=== PATIENT | male | born 1995 | race Caucasian/White ===

== ENCOUNTER 2019-08-06 22:07 | Emergency (ER) | payer BC, OTHER ==
--- OUTSIDE RECORDS SUMMARY | 2019-08-06 22:10 | XMS REPORT ---
:1995 [facility] Address [address] [place] [address] Care Team Providers Name Role Phone Unavailable Unavailable Unavailable Problems This patient has no known problems. Allergies, Adverse Reactions, Alerts This patient has no known allergies or adverse reactions. Medications This patient has no known medications.
--- OUTSIDE RECORDS SUMMARY | 2019-08-06 22:10 | XMS REPORT | Summary of Care ---
:1995 Author Organization [facility] Address [address] [place] [id number] Care Team Providers Name Role Phone Donna Alaniz Primary Care Provider Encounter Details Date Type Department Care Team Description 08/01/2019 Hospital Encounter [facility] [address] [facility] [address], [place] [address] [place], [place] [phone] Allergies Not on Filedocumented as of this encounter (statuses as of 08/02/2019) Medications Not on filedocumented as of this encounter (statuses as of 08/02/2019) Active Problems Not on filedocumented as of this encounter (statuses as of 08/02/2019) Social History Tobacco Use Types Packs/Day Years Used Date Never Assessed Sex Assigned at Date Recorded Not on file Job Start Date Occupation Industry Not on file Not on file Not on file Travel History Travel Start Travel End No recent travel history available. documented as of this encounter Last Filed Vital Signs Not on filedocumented in this encounter Plan of Treatment Health Maintenance Due Date Last Done Comments VARICELLA VACCINES (1 of 2 - 1994 2-dose childhood series) DTaP,Tdap,and Td Vaccines ( - 2004 Tdap) INFLUENZA VACCINE (#1) 2019 HPV VACCINES Aged Out No longer eligible based on patient's age to complete this topic PNEUMOCOCCAL 0-64 YEARS COMBINED Aged Out No longer eligible based on SERIES patient's age to complete this topic documented as of this encounter Procedures Procedure Name Priority Date/Time Associated Diagnosis Comments XR CHEST 2 VW Routine 08/01/2019 3:26 PM Shortness of breath Results for this [employer] procedure are in the results section. XR SINUSES 3+ VW Routine 08/01/2019 3:26 PM Chronic maxillary Results for this [employer] sinusitis procedure are in the results section. documented in this encounter Results XR SINUSES 3+ VW (08/01/2019 3:26 PM [employer]) Specimen Narrative Performed At HISTORY: Chronic maxillary sinusitis. PACS/VR/DOSE COMPARISON: None. TECHNIQUE: AP, right lateral and Weaver views are submitted for paranasal sinus evaluation. FINDINGS: All paranasal sinuses appear clear. No significant deviation of the nasal septum noted. No gross pathology visualized in the temporal bone anatomy or in the sella turcica region. CONCLUSIONS: Clear paranasal sinuses. Procedure Note [facility], Radiant Results Inft User - 08/01/2019 3:32 PM [employer] HISTORY: Chronic maxillary sinusitis. COMPARISON: None. TECHNIQUE: AP, right lateral and Weaver views are submitted for paranasal sinus evaluation. FINDINGS: All paranasal sinuses appear clear. No significant deviation of the nasal septum noted. No gross pathology visualized in the temporal bone anatomy or in the sella turcica region. CONCLUSIONS: Clear paranasal sinuses. Performing Organization Address City/State/Zipcode Phone Number PACS/VR/DOSE documented in this encounter Visit Diagnoses Diagnosis Chronic maxillary sinusitis documented in this encounter documented as of this encounter
--- OUTSIDE RECORDS SUMMARY | 2019-08-06 22:10 | XMS REPORT | Summary of Care ---
:1995 Author Organization [facility] Address [address] [place] [address] Care Team Providers Name Role Phone Donna Alaniz Primary Care Provider Encounter Details Date Type Department Care Team Description 08/01/2019 Hospital Encounter [facility] Diagnostic Donna Alaniz Canceled (ERROR) and Breast Imaging, [address] [place] [phone] Allergies Not on Filedocumented as of this [...] Due Date Last Done Comments VARICELLA VACCINES ( of - 1994 2-dose childhood series) DTaP,Tdap,and Td Vaccines ( - 2004 Tdap) INFLUENZA VACCINE (#1) 2019 HPV VACCINES Aged Out No longer eligible based on patient's age to complete this topic PNEUMOCOCCAL 0-64 YEARS COMBINED Aged Out No longer eligible based on SERIES patient's age to complete this topic documented as of this encounter Procedures Procedure Name Priority Date/Time Associated Diagnosis Comments XR SINUSES 3+ VW Routine 08/01/2019 3:26 PM Chronic maxillary Results for this REVIEW SCHEDULING COORDINATOR sinusitis procedure are in the results section. XR CHEST 2 VW Routine 08/01/2019 3:26 PM Shortness of breath Results for this REVIEW SCHEDULING COORDINATOR procedure are in the results section. documented in this encounter Results XR SINUSES 3+ VW (08/01/2019 3:26 PM REVIEW SCHEDULING COORDINATOR) Specimen Narrative Performed At HISTORY: Chronic maxillary [...] Results Inft User - 08/01/2019 3:32 PM REVIEW SCHEDULING COORDINATOR HISTORY: Chronic maxillary sinusitis. COMPARISON: None. TECHNIQUE: AP, right lateral and Weaver views are submitted for paranasal sinus evaluation. FINDINGS: All paranasal sinuses appear clear. No significant deviation of the nasal septum noted. No gross pathology visualized in the temporal bone anatomy or in the sella turcica region. CONCLUSIONS: Clear paranasal sinuses. Performing Organization Address City/State/Zipcode Phone Number PACS/VR/DOSE XR CHEST 2 VW (08/01/2019 3:26 PM REVIEW SCHEDULING COORDINATOR) Specimen Narrative Performed At HISTORY: SOB. PACS/VR/DOSE TECHNIQUE: PA and lateral views of the chest are obtained. No prior chest study available for comparison. Lateral view is compromised due to motion. FINDINGS: Minimal congestion suspected in the retrocardiac left lower lung. No acute pneumonia detected. No pneumothorax or pleural effusion. Cardiothoracic ratio of approximately 15/33.8 cm is consistent with normal cardiac size. CONCLUSIONS: Minimal congestion in the retrocardiac left lower lung, borderline findings for viral infection/bronchitis. No pneumonia. Procedure Note [facility], Radiant Results Inft User - 08/01/2019 3:31 PM REVIEW SCHEDULING COORDINATOR HISTORY: SOB. TECHNIQUE: PA and lateral views of the chest are obtained. No prior chest study available for comparison. Lateral view is compromised due to motion. FINDINGS: Minimal congestion suspected in the retrocardiac left lower lung. No acute pneumonia detected. No pneumothorax or pleural effusion. Cardiothoracic ratio of approximately 15/33.8 cm is consistent with normal cardiac size. CONCLUSIONS: Minimal congestion in the retrocardiac left lower lung, borderline findings for viral infection/bronchitis. No pneumonia. Performing Organization Address City/State/Zipcode Phone Number PACS/VR/DOSE documented in this encounter Visit Diagnoses Diagnosis Shortness of breath documented in this encounter documented as of this encounter
[2019-08-06] MEDS ORDERED: IPRATROPIUM BROM 0.5MG/2.5ML ONE (23:41)
[2019-08-06] MEDS ORDERED: ALBUTEROL 2.5 MG/3 ML NEB SOL ONE (23:42)
--- NOTE | 2019-08-07 01:07 | EDPHYS ---
Physician Documentation [facility] Name: Parish Ferrera Age: 24 yrs Sex: Male : 1995 Arrival Date: 08/06/2019 Time: 22:10 Bed 26 Private MD: ED Physician Garland Rahman HPI: 08/06 00:37 This 24 yrs old Male presents to ER via Ambulatory with complaints of tw4 Breathing Difficulty. 00:37 The patient has shortness of breath at rest. Onset: The symptoms/episode began/occurred tw4 2 month(s) ago. Duration: The symptoms are continuous, and are unchanged since they started. The patient's shortness of breath has no apparent modifying factors. Associated signs and symptoms: The patient has no apparent associated signs or symptoms. Severity of symptoms: At their worst the symptoms were moderate in the emergency department the symptoms have resolved. The patient has not experienced similar symptoms in the past. Historical: - Allergies: 08/05 22:46 No Known Allergies; bb - Home Meds: 22:46 None [Active]; bb - PMHx: 22:46 None; bb - PSHx: 22:46 None; bb - Immunization history:: Adult Immunizations up to date. - Social history:: Smoking status: Patient denies any tobacco usage or history of. ROS: 08/06 00:37 Constitutional: Negative for fever, chills, and weight loss, Cardiovascular: Negative tw4 for chest pain, palpitations, and edema, Abdomen/GI: Negative for abdominal pain, nausea, vomiting, diarrhea, and constipation, Back: Negative for injury and pain, MS/Extremity: Negative for injury and deformity, Skin: Negative for injury, rash, and discoloration, Neuro: Negative for headache, weakness, numbness, tingling, and seizure. Exam: 00:37 Constitutional: This is a well developed, well nourished patient who is awake, alert, tw4 and in no acute distress. Head/Face: Normocephalic, atraumatic. Chest/axilla: Normal chest wall appearance and motion. Nontender with no deformity. No lesions are appreciated. Cardiovascular: Regular rate and rhythm with a normal S1 and S2. No gallops, murmurs, or rubs. Normal PMI, no JVD. No pulse deficits. Respiratory: Lungs have equal breath sounds bilaterally, clear to auscultation and percussion. No rales, rhonchi or wheezes noted. No increased work of breathing, no retractions or nasal flaring. Abdomen/GI: Soft, non-tender, with normal bowel sounds. No distension or tympany. No guarding or rebound. No evidence of tenderness throughout. Back: No spinal tenderness. No costovertebral tenderness. Full range of motion. MS/ Extremity: Pulses equal, no cyanosis. Neurovascular intact. Full, normal range of motion. Neuro: Awake and alert, GCS 15, oriented to person, place, time, and situation. Cranial nerves II-XII grossly intact. Motor strength 5/5 in all extremities. Sensory grossly intact. Cerebellar exam normal. Normal gait. Vital Signs: 08/05 22:43 BP 128 / 81; Pulse 58; Resp 18 S; Temp 97.7(O); Pulse Ox 99% on R/A; Weight 108.86 kg bb (R); Height 6 ft. 0 in. (182.88 cm) (R); Pain 0/10; 08/06 01:25 BP 125 / 70; Pulse 60; Resp 18; Temp 98.0; Pulse Ox 99% ; Pain 0/10; ll1 08/05 22:43 Body Mass Index 32.55 (108.86 kg, 182.88 cm) bb MDM: 08/05 23:27 Patient medically screened. tw4 08/06 00:37 Differential diagnosis: asthma, Bronchitis pneumonia, reactive airway disease. Data tw4 reviewed: vital signs, nurses notes. Data reviewed: lab test result(s), Flu: negative. Data interpreted: Pulse oximetry: Interpretation: normal. Counseling: I had a detailed discussion with the patient and/or guardian regarding: the historical points, exam findings, and any diagnostic results supporting the discharge/admit diagnosis, lab results. Special discussion: I discussed with the patient/guardian in detail that at this point there is no indication for admission to the hospital. It is understood, however, that if the symptoms persist or worsen the patient needs to return immediately for re-evaluation. 08/05 23:30 Order name: Flu tw4 08/06 00:37 Order name: EKG - Nurse/Tech; Complete Time: : tw4 Administered Medications: 03/09 23:45 Drug: DuoNeb (3:1) (2.5 mg - 0.5 mg) 3 ml Route: Nebulizer; ll1 08/06 01:01 Follow up: Response: No adverse reaction; Wheezing diminished; RASS: Alert and Calm (0) ll1 Disposition: 08/07/19 01:06 Discharged to Home. Impression: Bronchitis, not specified as acute or chronic. - Condition is Stable. - Discharge Instructions: Acute Bronchitis, Adult, Shortness of Breath, [id number]. - Prescriptions for Albuterol Sulfate 90 mcg/actuation - inhale 1-2 puff by INHALATION route every 4-6 hours; 1 Inhaler. Guaifenesin AC 10- 100 mg/5 mL Oral Liquid - take 10 milliliter by ORAL route every 4 hours As needed; 240 milliliter. - Medication Reconciliation Form, Thank You Letter, Antibiotic Education, Prescription Opioid Use form. - Follow up: Private Physician; When: Upon discharge from the Emergency Department; Reason: Recheck today's complaints, Continuance of care, Re-evaluation by your physician. - Problem is new. - Symptoms have improved. Signatures: Dispatcher [employer] EDMS Selma Vora RN RN bb Garland Rahman MD MD tw4 Reece Carrera RN RN ll1 Corrections: (The following items were deleted from the chart) 01:30 01:06 08/07/2019 01:06 Discharged to Home. Impression: Bronchitis, not specified as ll1 acute or chronic. Condition is Stable. Forms are Medication Reconciliation Form, Thank You Letter, Antibiotic Education, Prescription Opioid Use. Follow up: Private Physician; When: Upon discharge from the Emergency Department; Reason: Recheck today's complaints, Continuance of care, Re-evaluation by your physician. Problem is new. Symptoms have improved. tw4
--- NOTE | 2019-08-07 01:07 | ER ---
Nurse's Notes [facility] Name: Parish Ferrera Age: 24 yrs Sex: Male : 1995 Arrival Date: 08/06/2019 Time: 22:10 Bed 26 Private MD: Diagnosis: Bronchitis, not specified as acute or chronic Presentation: 08/05 22:43 Chief complaint: Patient states: he is having difficulty breathing was seen by PCP gilma several times and diagnosed with something different each time the last time he had an X-ray and was told he had bronchitis and given a Zpak but symptoms still persist. Coronavirus screen: The patient has NOT traveled to a country currently being monitored by the CDC within the last 14 days. Proceed with normal triage procedures. Ebola Screen: No symptoms or risks identified at this time. Initial Sepsis Screen: Does the patient meet any 2 criteria? No. Patient's initial sepsis screen is negative. Does the patient have a suspected source of infection? No. Patient's initial sepsis screen is negative. Risk Assessment: Do you want to hurt yourself or someone else? Patient reports no desire to harm self or others. Onset of symptoms was April 2019. 22:43 Method Of Arrival: Ambulatory bb 22:43 Acuity: JULIETA 3 bb Triage Assessment: 22:46 General: Appears in no apparent distress. Behavior is calm, cooperative. Pain: Denies bb pain. Respiratory: Reports shortness of breath Respiratory effort is even, unlabored, Onset: The symptoms/episode began/occurred since Apr 2019, the patient has mild shortness of breath. Derm: Skin is pink, warm \T\ dry. Musculoskeletal: Circulation, motion, and sensation intact. Historical: - Allergies: 22:46 No Known Allergies; bb - Home Meds: 22:46 None [Active]; bb - PMHx: 22:46 None; bb - PSHx: 22:46 None; bb - Immunization history:: Adult Immunizations up to date. - Social history:: Smoking status: Patient denies any tobacco usage or history of. Screenin/10 01:07 Abuse screen: Denies threats or abuse. Nutritional screening: No deficits noted. ll1 Tuberculosis screening: No symptoms or risk factors identified. Fall Risk None identified. Total An Fall Scale indicates No Risk (0-24 pts). Assessment: 08/05 23:45 General: Appears in no apparent distress. Behavior is calm, cooperative. ll1 Cardiovascular: Heart tones S1 S2 Capillary refill < 3 seconds Clubbing of nail beds is absent JVD is absent Patient's skin is warm and dry. Pulses are 2+ in right radial artery and left radial artery Rhythm is regular Chest pain is aggravated by coughing. Respiratory: Reports shortness of breath at rest Airway is patent Trachea midline Respiratory effort is even, unlabored, Respiratory pattern is regular, symmetrical, Breath sounds with wheezes bilaterally. 08/06 00:45 Reassessment: Patient and/or family updated on plan of care and expected duration. Pain ll1 level reassessed. Patient is alert, oriented x 3, equal unlabored respirations, skin warm/dry/pink. states he cannot tell if the SOB is better yet. 01:15 Reassessment: Patient appears in no apparent distress at this time. No changes from ll1 previously documented assessment. Patient and/or family updated on plan of care and expected duration. Pain level reassessed. Patient is alert, oriented x 3, equal unlabored respirations, skin warm/dry/pink. Vital Signs: 08/05 22:43 BP 128 / 81; Pulse 58; Resp 18 S; Temp 97.7(O); Pulse Ox 99% on R/A; Weight 108.86 kg bb (R); Height 6 ft. 0 in. (182.88 cm) (R); Pain 0/10; 08/06 01:25 BP 125 / 70; Pulse 60; Resp 18; Temp 98.0; Pulse Ox 99% ; Pain 0/10; ll1 08/05 22:43 Body Mass Index 32.55 (108.86 kg, 182.88 cm) ED Course: 08/05 22:10 Patient arrived in ED. es 22:46 Triage completed. bb 22:46 Arm band placed on Patient placed in waiting room, Patient notified of wait time. bb Family accompanied patient. 23:12 Garland Rahman MD is Attending Physician. tw4 23:31 Reece Carrera, LANIE is Primary Nurse. ll1 08/06 01:08 Patient has correct armband on for positive identification. Bed in low position. Call ll1 light in reach. Side rails up X 1. 01:08 No provider procedures requiring assistance completed. ll1 01:27 Patient did not have IV access during this emergency room visit. 1 Administered Medications: 08/05 23:45 Drug: DuoNeb (3:1) (2.5 mg - 0.5 mg) 3 ml Route: Nebulizer; ll1 08/06 01:01 Follow up: Response: No adverse reaction; Wheezing diminished; RASS: Alert and Calm (0) [facility] Outcome: 01:06 Discharge ordered by . tw4 01:27 Discharged to home ambulatory, with family. 1 01:27 Condition: good 01:27 Discharge instructions given to patient, Instructed on discharge instructions, follow up and referral plans. medication usage, Demonstrated understanding of instructions, follow-up care, medications, Prescriptions given X 2. 01:30 Patient left the ED. 1 Signatures: Dee Grossman Brenda, LANIE RN Garland Degroot MD MD tw4 Reece Carrera RN RN [facility]
[2019-08-07 02:14] VITALS: O2SAT 99
[2019-08-07 02:16] VITALS: BP 125/70; TEMP 98
--- NOTE | 2019-08-07 12:13 | EKG ---
Test Date: 2019-08-06 Test Time: 23:56:39 Pst Specialist: KRISTEN MEASUREMENT RESULTS: Intervals: Rate: 64 SD: 164 QRSD: 122 QT: 424 QTc: 437 [place]: P: 38 SD: 164 QRS: 21 T: 49 INTERPRETIVE STATEMENTS: Normal sinus rhythm Nonspecific intraventricular conduction delay Borderline ECG No previous ECG available for comparison Electronically Signed On 08-07-19 12:12:07 CDT by Joon Mccain
== END 2019-08-07 01:30 | disposition home or self-care (01) ==
LOC: ER 22:07
DX: J40 Bronchitis, not specified as acute or chronic (principal)
CPT/HCPCS: 87804; 93005; 94640; 99284